=== PATIENT | male | born 1995 | race Caucasian/White ===

== ENCOUNTER 2016-12-01 16:16 | Emergency (ER) | payer SELFPAY ==
[~2016-12-01] VITALS: Ht 177.8 cm; Wt 86.4 kg
[~2016-12-01 16:16] MED LIST: AMOXICILLIN875 MG PO; AUGMENTIN875TAB PO; DILANTIN100 MG PO; IMODIUM2 MG PO; MEDDOSEPAK PO; MOTRIN800 MG PO; NAPROSYN500 MG PO; NO; PROZAC10 MG PO; PROZAC20 MG PO; ROBITUSSIN AC10 ML PO; TAM75CAP PO; TESSALON PER100 MG PO; ZOFRAN ODT4 MG SL
[2016-12-01] MEDS ORDERED: NAPROSYN500 MG PO (19:11)
[2016-12-01 19:30] VITALS: BP 139/74
== END 2016-12-01 19:30 | disposition home or self-care (01) | DRG 563 ==
LOC: ED 16:16
DX: S43.401A Unspecified sprain of right shoulder joint, initial encounter (principal); V18.0XXA Pedal cycle driver injured in noncollision transport accident in nontraffic accident, initial encounter; Y92.410 Unspecified street and highway as the place of occurrence of the external cause; Y93.55 Activity, bike riding

== ENCOUNTER 2017-12-11 14:49 | Emergency (ER) | payer MEDICAID ==
[~2017-12-11] VITALS: Ht 177.8 cm; Wt 99.0 kg
[2017-12-11] MEDS ORDERED: AUGMENTIN875TAB PO (15:09)
[2017-12-11 15:20] VITALS: BP 145/55
== END 2017-12-11 15:20 | disposition home or self-care (01) | DRG 159 ==
LOC: ED 14:49
DX: S02.5XXA Fracture of tooth (traumatic), initial encounter for closed fracture (principal); K08.89 Other specified disorders of teeth and supporting structures; X58.XXXA Exposure to other specified factors, initial encounter

== ENCOUNTER 2018-01-16 11:37 | Emergency (ER) | payer MEDICAID ==
[~2018-01-16] VITALS: Ht 177.8 cm; Wt 90.1 kg
[2018-01-16] MEDS ORDERED: BACTRIM DS1 TAB PO (12:18)
[2018-01-16] MEDS ORDERED: IBUPROFEN600 MG PO (12:18)
[2018-01-16] MEDS ORDERED: KEFLEX500 M1 PO (12:18)
[2018-01-16 12:48] VITALS: BP 117/70
== END 2018-01-16 12:50 | disposition home or self-care (01) | DRG 603 ==
LOC: ED 11:37
PROC: 0H9FXZZ Drainage of Right Hand Skin, External Approach (ICD-10-PCS; principal; 2018-01-16)
DX: L03.011 Cellulitis of right finger (principal); B95.62 Methicillin resistant Staphylococcus aureus infection as the cause of diseases classified elsewhere

== ENCOUNTER 2018-01-22 17:17 | Emergency (ER) | payer MEDICAID ==
[~2018-01-22] VITALS: Ht 177.8 cm; Wt 99.0 kg
[~2018-01-22 17:17] MED LIST changes: +BACTRIM DS1 TAB PO; +IBUPROFEN600 MG PO; +KEFLEX500 M1 PO
[2018-01-22] MEDS ORDERED: PERCOCET 5/325M1 TAB PO (21:22)
[2018-01-22 21:35] VITALS: BP 116/58
== END 2018-01-22 21:40 | disposition home or self-care (01) | DRG 563 ==
LOC: ED 17:17
PROC: 2W3QX1Z Immobilization of Right Lower Leg using Splint (ICD-10-PCS; principal; 2018-01-22)
DX: S82.891A Other fracture of right lower leg, initial encounter for closed fracture (principal); F17.210 Nicotine dependence, cigarettes, uncomplicated; W17.89XA Other fall from one level to another, initial encounter; Y93.83 Activity, rough housing and horseplay; Y92.89 Other specified places as the place of occurrence of the external cause

== ENCOUNTER 2018-04-12 21:09 | Emergency (ER) | payer MEDICAID ==
[~2018-04-12] VITALS: Ht 177.8 cm; Wt 99.0 kg
[~2018-04-12 21:09] MED LIST changes: +PERCOCET 5/325M1 TAB PO
[2018-04-12 22:22] LABS: URINE BILIRUBIN - DIPSTICK MODERATE (NEGATIVE); URINE BLOOD DIPSTICK NEGATIVE (NEGATIVE); URINE CLARITY CLEAR; URINE COLOR DK. YELLOW; URINE GLUCOSE - DIPSTICK NEGATIVE (NEGATIVE); URINE KETONE 15 mg/dL (NEGATIVE); URINE LEUK ESTERASE NEGATIVE (NEGATIVE); URINE NITRITE - DIPSTICK NEGATIVE (Negative); URINE PROTEIN - DIPSTICK 30 mg/dL (NEG-TRACE); URINE SPECIFIC GRAVITY 1.015
[2018-04-12 22:30] LABS: URINE MUCUS MANY hpf (NONE-FEW); URINE SQUAMOUS EPITHELIAL CELL FEW EPI/hpf (0-FEW)
[2018-04-12 23:20] VITALS: BP 137/77
== END 2018-04-12 23:30 | disposition home or self-care (01) ==
LOC: ED 21:09
PROVIDERS: Emergency Medicine
DX: Z20.2 Contact with and (suspected) exposure to infections with a predominantly sexual mode of transmission (principal); F17.210 Nicotine dependence, cigarettes, uncomplicated